=== PATIENT | male | born 1960 | race African-American/Black ===

== ENCOUNTER 2023-06-06 09:29 | Emergency (ER) | payer MEDICARE, OTHER ==
[~2023-06-06] VITALS: Ht 180.3 cm; Wt 70.5 kg
[~2023-06-06 09:29] MED LIST: BENZ2TAB71 PO; DOCU-385 PO; LURA80TA2 PO; PALI234D IM; RISP1TAB48 PO
[2023-06-06 10:10] VITALS: BP 158/96; PULSE 82; RESP 18; TEMP 97.4
[2023-06-06] MEDS ORDERED: PERMETHRIN 5% 60 GM CREAM TP ONE (10:15)
== END 2023-06-06 10:40 | disposition left against medical advice (07) ==
LOC: EMS 09:30
DX: B86 Scabies (principal); F41.9 Anxiety disorder, unspecified; F31.9 Bipolar disorder, unspecified; F20.9 Schizophrenia, unspecified; F17.210 Nicotine dependence, cigarettes, uncomplicated
CPT/HCPCS: 99283

== ENCOUNTER 2023-06-18 18:30 | Emergency (ER) | payer MEDICARE, OTHER ==
[~2023-06-18] VITALS: Ht 180.3 cm; Wt 75.0 kg
[2023-06-18 21:15] VITALS: BP 135/88; PULSE 78; RESP 18; TEMP 97.9
[2023-06-18] MEDS: PERMETHRIN 5% 60 GM CREAM TP ONE (21:21)
== END 2023-06-18 21:35 | disposition home or self-care (01) ==
LOC: EMS 18:40
DX: B86 Scabies (principal); F41.9 Anxiety disorder, unspecified; F31.9 Bipolar disorder, unspecified; F20.9 Schizophrenia, unspecified; F17.210 Nicotine dependence, cigarettes, uncomplicated; Z98.890 Other specified postprocedural states; Z88.8 Allergy status to other drugs, medicaments and biological substances
CPT/HCPCS: 99282; Z7502; Z7610

== ENCOUNTER 2023-12-11 00:23 | Emergency (ER) | payer MEDICARE, OTHER ==
[~2023-12-11] VITALS: Ht 172.7 cm; Wt 85.0 kg
[~2023-12-11 00:23] MED LIST changes: -BENZ2TAB71 PO; +BENZ2TAB84 PO
[2023-12-11 00:52] VITALS: BP 136/84; PULSE 97; RESP 16; TEMP 97.2; O2SAT 98
[2023-12-11 01:33] LABS: BASOPHILS % (AUTO) 0.4 % (0.0-2.0); EOSINOPHILS % (AUTO) 3.5 % (1.0-6.0); HEMATOCRIT 38.3 % (41-53); LYMPHOCYTES # (AUTO) 1.9 K/uL (1.0-4.8); LYMPHOCYTES % (AUTO) 39.2 % (22.0-44.0); MEAN CORPUSCULAR HEMOGLOBIN 32.1 pg (26.0-34.0); MEAN CORPUSCULAR HGB CONC 33.9 G/dL (31.0-37.0); MEAN CORPUSCULAR VOLUME 95 fL (80-100); MONOCYTES # (AUTO) 0.7 K/uL (0.1-1.0); MONOCYTES % (AUTO) 14.1 % (2.0-9.0); NEUTROPHILS # (AUTO) 2.1 K/uL (1.8-7.7); NEUTROPHILS % (AUTO) 42.8 % (40.0-70.0); PLATELET COUNT (AUTO) 173 K/uL (150-450); RED BLOOD CELL COUNT(AUTO) 4.05 MIL/uL (4.50-5.90); RED CELL DISTRIBUTION WIDTH 13.6 % (11.5-14.5); WHITE BLOOD COUNT (AUTO) 4.9 K/uL (4.5-11.0)
[2023-12-11 01:34] LABS: ANION GAP 5 mmol/L (8-16); CALCIUM, TOTAL 8.9 mg/dL (8.8-10.5); CARBON DIOXIDE 30 mmol/L (22-29); CHLORIDE 95 mmol/L (98-107); CREATININE 0.75 mg/dL (0.60-1.30); GLOMERULAR FILTR. RATE CALC > 60 mL/min (>60); GLUCOSE,RANDOM 83 mg/dL (70-110); SODIUM SERUM 130 mmol/L (136-145); UREA NITROGEN, BLOOD 5 mg/dL (7-18)
[2023-12-11 01:51] LABS: ALCOHOL, BLOOD (SERUM) < 3 mg/dL (0-10)
[2023-12-11 02:55] LABS: PLATELET MORPHOLOGY COMMENT GIANT PLTS PRESENT
== END 2023-12-11 02:47 | disposition left against medical advice (07) ==
LOC: EMS 00:23
DX: F32.A Depression, unspecified (principal); Z53.21 Procedure and treatment not carried out due to patient leaving prior to being seen by health care provider
CPT/HCPCS: 36415; 80048; 85025; G0480

== ENCOUNTER 2024-01-26 14:18 | Emergency (ER) | payer MEDICARE, OTHER ==
[~2024-01-26] VITALS: Ht 180.3 cm; Wt 75.0 kg
[2024-01-26 14:22] VITALS: BP 138/70; PULSE 94; RESP 18; TEMP 97.9; O2SAT 98
[2024-01-26] MEDS ORDERED: DIVA-112 PO (14:24)
[2024-01-26] MEDS ORDERED: BENZ-247 PO (14:24)
[2024-01-26] MEDS ORDERED: HALO50VI29 IM (14:24)
== END 2024-01-26 16:44 | disposition left against medical advice (07) ==
LOC: EMS 14:18
DX: M25.551 Pain in right hip (principal); F20.9 Schizophrenia, unspecified; F31.9 Bipolar disorder, unspecified; Z79.899 Other long term (current) drug therapy
CPT/HCPCS: 99282; Z7502